=== PATIENT | male | born 1990 | race American Indian/Alaskan Native ===

== ENCOUNTER 2022-01-29 00:14 | Emergency (ER) | payer OTHER ==
[2022-01-29 08:29] VITALS: BP 144/76
[2022-01-29] MEDS ORDERED: HYDROcodone/ACETAMINOPHEN 10-325MG TAB PO ONE (08:53)
[2022-01-29] MEDS ORDERED: CYCLOBENZAPRINE 10 MG TAB PO ONE (08:53)
[2022-01-29] MEDS ORDERED: IBUPROFEN 800 MG TAB PO ONE (08:53)
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
== END 2022-01-29 12:05 | disposition home or self-care (01) ==
LOC: ED 00:14
DX: S16.1XXA Strain of muscle, fascia and tendon at neck level, initial encounter (principal); S39.012A Strain of muscle, fascia and tendon of lower back, initial encounter; S09.11XA Strain of muscle and tendon of head, initial encounter; Z79.899 Other long term (current) drug therapy; V87.7XXA Person injured in collision between other specified motor vehicles (traffic), initial encounter; Y93.89 Activity, other specified; Y92.488 Other paved roadways as the place of occurrence of the external cause; Y99.8 Other external cause status
CPT/HCPCS: 70450; 72125; 72128; 72131; 99284